=== PATIENT | male | born 1975 | race American Indian/Alaskan Native ===

== ENCOUNTER 2018-03-28 16:02 | Outpatient (CLI) | payer BC ==
--- NOTE | 2018-03-29 07:57 | Magnetic Resonance Report ---
MR LOWER EXTREMITY JOINT RIGHT WITHOUT CONTRAST History: Right knee pain. Technique: Multiple T1 and T2-weighted images with and without fat suppression. Comparison: None at this facility. Findings: There is a focal full-thickness cartilage defect in the medial facet of the retropatellar cartilage. There is subtle subchondral bone marrow edema in the medial facet of the patella as well. This has the appearance of a retropatellar cartilage fissure. This is best demonstrated on axial proton density fat-sat image 26. The lateral facet retropatellar cartilage is unremarkable. There is minimal cartilage thinning in the medial and lateral compartments of the knee but no focal cartilage defect is detected. The medial and lateral meniscus are intact and within normal limits. The ACL, PCL, MCL, LCL complex and extensor complex are intact. Other than the mild subchondral bone marrow edema in the medial patella, the bone marrow signal is within normal limits. No evidence for fracture or bone lesion. Trace joint effusion is noted. No popliteal cyst. The remaining soft tissue structures are unremarkable. IMPRESSION: Retropatellar cartilage fissure are similar cartilage defect, medial facet. See above.
--- NOTE | 2018-03-29 08:51 | Magnetic Resonance Report ---
MR LOWER EXTREMITY JOINT LEFT WITHOUT CONTRAST History: Left knee pain. Technique: Multisequence, multiplanar MRI with and without fat suppression through the left knee. Comparison: None. Findings: There is normal bone marrow signal throughout the visualized left knee. No evidence for fracture, bone lesion or osteochondral defect. There is mild cartilage thinning in the medial and lateral compartments of the left knee. The retropatellar cartilage appears intact. The medial and lateral menisci are intact and within normal limits. The ACL, PCL, MCL, LCL complex and extensor complex are intact. No joint effusion or bursal fluid is appreciated. The surrounding soft tissues are within normal limits. IMPRESSION: Essentially unremarkable MR of the left knee. There is mild cartilage thinning in the medial and lateral compartments consistent with very early osteoarthritic change. No internal derangement is detected.
== END 2018-03-28 16:03 | disposition home or self-care (01) ==
LOC: MRI 16:02
PROVIDERS: ATTEND Orthopaedic Surgery
DX: M76.51 Patellar tendinitis, right knee (principal); M76.52 Patellar tendinitis, left knee
CPT/HCPCS: 73721

== ENCOUNTER 2018-04-04 15:28 | Outpatient (CLI) | payer BC ==
--- NOTE | 2018-04-05 09:44 | Magnetic Resonance Report ---
MRI LUMBAR SPINE WITHOUT CONTRAST HISTORY: Low back pain. TECHNIQUE: axial T1, T2. sagittal T1,T2, STIR. COMPARISON: none. FINDINGS: The conus terminates at T12-L1. No signal abnormality or mass. The cauda equina is within normal limits. No central canal stenosis. Normal height and alignment of the lumbar vertebra. The facet joints are in appropriate relationship. Normal bone marrow signal. No acute fracture or suspicious bone lesion. There is mild disc desiccation at L4-5 and L5-S1. Mild disc space narrowing L5-S1. The paraspinal soft tissues are unremarkable. L1-2: No abnormality. L2-3: No abnormality. L3-4: No abnormality. L4-5: A mild broad-based central disc protrusion effaces the anterior thecal sac. No mass effect on nerve roots is appreciated. Facet joints are unremarkable. Mild thickening of the ligamentum flavum. No significant neural foraminal narrowing. L5-S1: A moderate broad-based central disc protrusion effaces the anterior thecal sac. The protrusion abuts but does not displace the bilateral S1 nerve roots. No central canal stenosis. Facet joints and ligamentum flavum are unremarkable. No significant neural foraminal narrowing. IMPRESSION: Midline disc protrusions at L4-5 and L5-S1 as described. No central canal stenosis or high-grade neural foraminal narrowing.
== END 2018-04-04 15:29 | disposition home or self-care (01) ==
LOC: MRI 15:28
PROVIDERS: ATTEND Orthopaedic Surgery Orthopaedic Surgery of the Spine
DX: M51.27 Other intervertebral disc displacement, lumbosacral region (principal)
CPT/HCPCS: 72148

== ENCOUNTER 2019-07-12 12:39 | Day surgery (SDC) | payer BC ==
[2019-07-12] MEDS ORDERED: LACTATED RINGERS 1,000 ML IV SCH (13:08)
[2019-07-12] MEDS ORDERED: ONDANSETRON 4 MG/2 ML INJ IV PRN (13:10)
[2019-07-12] MEDS ORDERED: fentaNYL 100 MCG/2 ML INJ IV PRN (13:10)
[2019-07-12] MEDS ORDERED: HYDROmorphone 1 MG/1 ML INJ IV PRN (13:10)
--- NOTE | 2019-07-12 13:11 | Anesthesia Day of Surgery ---
Anesthesia Day of Surgery - Day of Surgery Patient Examined: Yes Patient H&P Reviewed: Yes Patient is NPO: Yes
--- NOTE | 2019-07-12 13:12 | Anesthesia Consultation ---
Anesthesia Consult and Med Hx Date of service: 07/12/19 - Airway Anesthetic Teeth Evaluation: Good ROM Head & Neck: Adequate Mental/Hyoid Distance: Adequate Mallampati Class: Class I Intubation Access Assessment: Good - Pre-Operative Health Status ASA Pre-Surgery Classification: ASA1 Proposed Anesthetic Plan: General, MAC - Pulmonary Hx Smoking: No Hx Sleep Apnea: No (TASHIA PRE SCREEN HIGH RISK) - Cardiovascular System Hx Hypertension: No - Hematic Hx Sickle Cell Disease: No - Other Systems Hx Cancer: No
[2019-07-12] MEDS ORDERED: ceFAZolin/STERILE WATER 2 GM/20 ML SYRINGE IV NR (14:00)
[2019-07-12] MEDS ORDERED: LIDOCAINE (1%) 10 MG/1 ML VIAL 20 ML MDV ONE (14:27)
[2019-07-12] MEDS ORDERED: PROPOFOL 200 MG/20 ML VIAL IV ONE ×2 (14:38→15:11)
[2019-07-12] MEDS ORDERED: MIDAZOLAM 2 MG/2 ML INJ ONE (14:38)
[2019-07-12] MEDS ORDERED: fentaNYL 100 MCG/2 ML INJ ONE (14:38)
[2019-07-12] MEDS ORDERED: KETAMINE/STERILE WATER 50 MG/ML SYRINGE ONE (14:39)
--- NOTE | 2019-07-12 14:55 | Post Operative Note ---
Date of procedure: 07/12/19 Pre-op diagnosis: elective sterilization Post-op diagnosis: same Findings: small vasa Procedure: vas bilat Anesthesia: GETA Estimated blood loss: minimal Pathology: list (vasa) Specimen disposition: to lab Condition: stable Disposition: PACU
--- NOTE | 2019-07-12 14:56 | Discharge Summary ---
Short Stay Discharge Plan Activity: other (no straining ) Weight Bearing Status: Full Weight Bearing Diet: low fat, low cholesterol, low salt Wound: open to air Special Instructions: other (ice in RR and x 24 hrs ) Durable Medical Equipment Needed Upon Discharge: other (ice) Follow up with: PANKAJ SPAULDING MD [Primary Care Provider] - 7 Days DESIRE BARNES MD [Staff Physician] - 6 Weeks
[2019-07-12] MEDS ORDERED: SODIUM CHLORIDE 0.9% IRR 1,000 ML BOTTLE IR ONE (15:03)
[2019-07-12] MEDS ORDERED: LIDOCAINE (1%) 10 MG/1 ML VIAL 20 ML MDV INFILTRATI ONE (15:03)
[2019-07-12 16:49] VITALS: BP 139/72
--- NOTE | 2019-07-12 17:49 | Post Anesthesia Evaluation ---
- Post Anesthesia Evaluation Patient Participated: Yes Airway Patent: Yes Stable Respiratory Function: Yes Nausea/Vomiting: No Temp > 96.8F: Yes Pain Manageable: Yes Adequeate Hydration: Yes Anesthesia Complications: No
--- NOTE | 2019-07-12 21:08 | Operative Report ---
PREOPERATIVE DIAGNOSIS: Elective sterilization tiny vasa bilaterally. POSTOPERATIVE DIAGNOSIS: Elective sterilization tiny vasa bilaterally. PROCEDURE: Bilateral elective sterilization, partial vasectomy. SURGEON: Dr. Faisal Maher. ANESTHESIA: General. FINDINGS: This is a gentleman with a large scrotum with small vasa which were difficult to separate from the cord. He now presents for a vasectomy under anesthesia. DESCRIPTION OF PROCEDURE: The patient was brought to the operating table. Following induction of anesthesia, placed in the supine position, prepped and draped in usual sterile fashion. A small incision was made over the left vas laterally well away from the cord and carried down to the tiny vas. It was dissected free. It was palpated and felt like a vas and doubly tied on each side, cauterized the lumen and covered up. Wound was irrigated. The specimen was sent to pathology. Sutures were placed. A second incision was made in the medial aspect of the scrotum with the right vas which was the more difficult one, which is very small adherent to the cord and . We dissected a small incision down to the vas. We had to make sure multiple ties around the vas and it was small. It was dissected free, doubly tied, doubly ligated and cauterized. The patient tolerated the procedure well. No significant bleeding. Estimated blood loss was less than 1 mL. Closure was with 3-0 chromic, brought to recovery in stable condition. JOB# [id number] CHELSY/RANJITH
== END 2019-07-12 17:35 | disposition home or self-care (01) ==
LOC: OR 12:39
PROVIDERS: ATTEND Urology
DX: Z30.2 Encounter for sterilization (principal); D29.8 Benign neoplasm of other specified male genital organs; Z98.890 Other specified postprocedural states
CPT/HCPCS: 55250; 88302; J2250; J2704; J3010; J7120

== ENCOUNTER 2019-10-24 11:02 | Day surgery (SDC) | payer BC ==
[~2019-10-24 11:02] MED LIST: SODIUM CHLORIDE 0.9% 1000 ML 1,000 ML IV SCH
--- NOTE | 2019-10-24 11:39 | Anesthesia Day of Surgery ---
Anesthesia Day of Surgery - Day of Surgery Patient Examined: Yes Patient H&P Reviewed: Yes Patient is NPO: Yes
--- NOTE | 2019-10-24 11:41 | Anesthesia Consultation ---
Anesthesia Consult and Med Hx - Airway Anesthetic Teeth Evaluation: Good ROM Head & Neck: Adequate Mental/Hyoid Distance: Adequate Mallampati Class: Class II Intubation Access Assessment: Probably Good - Pulmonary Exam CTA: Yes - Cardiac Exam Cardiac Exam: RRR - Pre-Operative Health Status ASA Pre-Surgery Classification: ASA1 Proposed Anesthetic Plan: General, MAC - Pulmonary Hx Smoking: No Hx Sleep Apnea: No (TASHIA PRE SCREEN HIGH RISK) - Cardiovascular System Hx Hypertension: No - Hematic Hx Sickle Cell Disease: No - Other Systems Hx Cancer: No - Additional Comments Anesthesia Medical History Comments: 44yo healthy for Colon Screning. Family h/o Colon Ca.
[2019-10-24] MEDS ORDERED: PROPOFOL 200 MG/20 ML VIAL IV ONE (11:56)
--- NOTE | 2019-10-24 12:22 | Short Stay Summary ---
Short Stay Documentation Date of service: 10/24/19 Narrative H&P: The patient presents for his first screening colonoscopy. FH positive for a first degree relative with colon cancer, his father. - History Past Medical History: No medical history Past Surgical History: No surgical history Social history: no significant social history - Allergies and Medications Current Medications: Allergies No Known Allergies Allergy (Verified 06/29/19 16:03) Home Medications Medication Instructions Recorded Confirmed Last Taken Type No Known Home Medications [No 06/29/19 10/24/19 Unknown History Reported Home Medications] Active Medications Sodium Chloride (Nacl 0.9% 1000 Ml) 1,000 mls @ 50 mls/hr IV DIRECT GRICELDA Last Admin: 10/24/19 11:32 Dose: 50 mls/hr Documented by: - Physical exam General appearance: no acute distress, well-nourished Integumentary: no rash, no growths, no abnormal pigmentation HEENT: Atraumatic, PERRLA, EOMI, Mucous membr. moist/pink Lungs: Normal air movement Breasts: deferred Heart: Regular rate, Normal S1, Normal S2, No murmurs Gastrointestinal: normoactive bowel sounds, no tenderness, no distended, no masses, no guarding, no organomegaly, no obese Male Genitourinary: deferred Rectal Exam: normal exam-external/orifice, no mass Extremities: no ischemia, pulses intact, pulses symmetrical, No edema, normal temperature, normal color, Full ROM Neurological: Normal gait, Normal speech, Strength at 5/5 X4 ext, Normal tone, Sensation intact, Cranial nerves 3-12 NL - Brief post op/procedure progress note Date of procedure: 10/24/19 Procedure: see dictation Estimated blood loss: none Pathology: list (transverse colon polyp) Specimen disposition: to lab Condition: stable - Disposition Condition at discharge: Good Disposition: DC-01 TO HOME OR SELFCARE - Discharge Diagnoses (1) Family history of colon cancer in father Status: Acute Short Stay Discharge Plan Activity: other (no driving for 24 hours.) Follow up with: PANKAJ SPAULDING MD [Primary Care Provider] - 7 Days
--- NOTE | 2019-10-24 12:25 | Operative Report ---
Operative Report Operative Report: Date of procedure: 10/24/2019 Preprocedure diagnosis: Colon cancer screening in a high risk individual. Fami ly history of colon cancer in a first-degree relative, father. Post procedure diagnosis: Transverse colon polyp, mild diverticulosis Procedure: Colonoscopy to the cecum with cold snare polypectomy Endoscopist: Dr. Crawford Anesthesia: Monitored anesthesia care per anesthesia department Estimated blood loss: 0 Medications: Monitored anesthesia care. See separate report by anesthesia for details. After careful discussion of the nature and purpose of the procedure as well as details of the technique risks benefits and alternatives the patient gave consent. Please see recent history and physical from the office. The patient was placed in the left lateral decubitus position and medicated per anesthesia. A rectal exam was performed sphincter tone was normal there were no masses palpable. The Olympus colonoscope was passed transanally and advanced under continuous direct vision without difficulty to the cecum. The colon was well prepared. The cecum was normal. The ascending colon revealed a few scattered diverticula but otherwise was normal.. The transverse colon revealed a 6 mm semi- pedunculated polyp. The polyp was removed with cold snare polypectomy resection and retrieved by suction.scattered diverticula were present in the descending colon and sigmoid colon. The rectum was normal on forward and retroflexed views. The procedure was well-tolerated overall and the patient was observed in recovery. Conclusions: 6 mm benign-appearing transverse colon polyp. Scattered colon diverticula.. Plan: Await pathology. Repeat colonoscopy in 5 years. Signed electronically: Joseluis Crawford M.D.
[2019-10-24 13:07] VITALS: BP 120/69
[2019-10-24] MEDS ORDERED: LIDOCAINE MPF (2%) 20 MG/1 ML VIAL 5 ML ONE (14:00)
--- NOTE | 2019-10-24 22:08 | Post Anesthesia Evaluation ---
- Post Anesthesia Evaluation Patient Participated: Yes Airway Patent: Yes Stable Respiratory Function: Yes Nausea/Vomiting: No Temp > 96.8F: Yes Pain Manageable: Yes Adequeate Hydration: Yes Anesthesia Complications: No Block Receding Appropriately: Not Applicable Patient on Ventilator: No
== END 2019-10-24 11:03 | disposition home or self-care (01) ==
LOC: GIO 11:02
PROVIDERS: ATTEND Internal Medicine Gastroenterology
DX: Z12.11 Encounter for screening for malignant neoplasm of colon (principal); D12.3 Benign neoplasm of transverse colon; K57.30 Diverticulosis of large intestine without perforation or abscess without bleeding; Z79.899 Other long term (current) drug therapy; Z80.0 Family history of malignant neoplasm of digestive organs; Z98.890 Other specified postprocedural states
CPT/HCPCS: 45385; 88305; J2704; J7030